=== PATIENT | male | born 1990 | race African-American/Black ===

== ENCOUNTER 2022-08-16 23:22 | Emergency (ER) | payer BC ==
[2022-08-16 23:28] VITALS: BP 143/98; PULSE 102; RESP 17; TEMP 98.1; BMI 23.8
[2022-08-16] MEDS ORDERED: TETRACAINE 0.5% OPHTH SOLN 2 ML BOTTLE OU ONE (23:41)
[2022-08-16] MEDS ORDERED: FLUORESCEIN NA 1 EA STRIP OU ONE (23:41)
[2022-08-16] MEDS ORDERED: TETRACAINE 0.5% OPHTH SOLN 2 ML BOTTLE ONE ×2 (23:44→23:57)
[2022-08-16] MEDS ORDERED: FLUORESCEIN NA 1 EA STRIP ONE ×2 (23:44→23:56)
[2022-08-17] MEDS ORDERED: ERYTHROMYCIN 0.5% OPHTHALMIC OINTMENT 3.5 GM TUBE OU ONE (00:43)
[2022-08-17] MEDS ORDERED: oxyCODONE HCL 5 MG TABLET PO ONE (01:05)
[2022-08-17] MEDS ORDERED: ERYTHROMYCIN 0.5% OPHTHALMIC OINTMENT 3.5 GM TUBE ONE (01:09)
[2022-08-17] MEDS ORDERED: oxyCODONE HCL 5 MG TABLET ONE (01:10)
[2022-08-17] MEDS ORDERED: ARTIFICIAL TEARS (POLYVINYL ALCOHOL) OPTH DROPS OU PRN (01:34)
== END 2022-08-17 02:23 | disposition home or self-care (01) ==
LOC: JER 23:22
DX: H16.133 Photokeratitis, bilateral (principal); H57.13 Ocular pain, bilateral
CPT/HCPCS: 99283-25

== ENCOUNTER 2024-06-22 07:31 | Emergency (ER) | payer BC ==
[2024-06-22 07:37] VITALS: BP 126/81; PULSE 110; RESP 16; TEMP 99.1; BMI 24.2
[2024-06-22] MEDS ORDERED: ONDANSETRON *ODT* 4 MG TABLET ONE ×2 (08:07→09:01)
[2024-06-22] MEDS ORDERED: ACETAMINOPHEN 500 MG TABLET (FP) ONE ×2 (08:12→09:01)
[2024-06-22] MEDS: ONDANSETRON *ODT* 4 MG TABLET SL ONE (09:02)
[2024-06-22] MEDS: ACETAMINOPHEN 500 MG TABLET (FP) PO ONE (09:02)
[2024-06-22] MEDS ORDERED: TETRACAINE 0.5% OPHTH SOLN 2 ML BOTTLE ONE (09:27)
[2024-06-22] MEDS ORDERED: FLUORESCEIN NA 1 EA STRIP ONE (09:27)
[2024-06-22] MEDS: FLUORESCEIN NA 1 EA STRIP OU ONE (09:36)
[2024-06-22] MEDS: TETRACAINE 0.5% OPHTH SOLN 2 ML BOTTLE OU ONE (09:37)
== END 2024-06-22 12:31 | disposition home or self-care (01) ==
LOC: JER 07:31 → JERFT 07:31
DX: J02.0 Streptococcal pharyngitis (principal); H10.33 Unspecified acute conjunctivitis, bilateral; R05.9 Cough, unspecified; R61 Generalized hyperhidrosis; R11.2 Nausea with vomiting, unspecified; R19.7 Diarrhea, unspecified; B95.1 Streptococcus, group B, as the cause of diseases classified elsewhere; Z20.822 Contact with and (suspected) exposure to COVID-19
CPT/HCPCS: 0241U-QW; 71046-TC-FY; 87651; 99284-25; Q0162